=== PATIENT | female | born 1955 ===

== ENCOUNTER 2022-10-05 18:01 | Outpatient (REF) | payer MEDICARE, BC, SELFPAY ==
[2022-10-05 16:39] LABS: D-Dimer 378 ng/mlFEU (<500)
== END 2022-10-05 18:02 | disposition home or self-care (01) ==
LOC: LBN 18:01
PROVIDERS: Visit Provider Nurse Practitioner Family
DX: M79.661 Pain in right lower leg (principal)
CPT/HCPCS: 85379